=== PATIENT | female | born 1985 | race Caucasian/White ===

== ENCOUNTER 2020-11-24 10:48 | Emergency (ER) | payer OTHER ==
--- OUTSIDE RECORDS SUMMARY | 2020-11-24 10:50 | XMS REPORT | Continuity of Care Document ---
:1985 Author Organization [facility] t Address [address] [place] [address] Care Team Providers Name Role Phone Asked, Pcp Primary Care Physician Unavailable Lab, Fam Pob I Attending Clinician Unavailable Doctor Unassigned, Name Attending Clinician Unavailable DANYELLE Attending Clinician Unavailable DR KEATON Attending Clinician Unavailable DR KEATON Admitting Clinician Unavailable Problems This patient has no known problems. Allergies, Adverse Reactions, Alerts This patient has no known allergies or adverse reactions. Social History Social Habit Start Date Stop Date Quantity Comments Source History [facility] Christianity Alcohol Std Drinks Hospit al History [facility] Alcohol Binge Hospital ASSERTION [facility] Alcohol intake 2019-05-26 2019-05-26 Lifetime [facility] 00:00:00 00:00:00 non-drinker Hospital (finding) History [facility] 2019-05-26 2019-05-26 1 [facility] Alcohol Frequency 00:00:00 00:00:00 Hospita l Sex Assigned At [birth year] [facility] 00:00:00 00:00:00 Hospital Smoking Status Start Date Stop Date Source Former smoker 2019-05-26 00:00:00 2019-05-26 00:00:00 [facility] Ordered Filled Start Stop Current Ordering Indication Dosage Frequency Signature Comments Components Source Medication Medication Date Date Medication? Clinician (SIG) Name Name No known No Methodi medications [facility] Hospita l Procedures This patient has no known procedures. Plan of Care Planned Activity Planned Date Details Comments Source Future Scheduled Test COVID-19 VACCINE (1) [facility] [code = COVID-19 VACCINE (1)] Future Scheduled Test Hepatitis C screening [facility] (procedure) [code = 671432449] Future Scheduled Test Screening for [facility] malignant neoplasm of cervix (procedure) [code = 739576338] Future Scheduled Test INFLUENZA VACCINE [facility] [code = INFLUENZA VACCINE] Encounters Start End Encounter Admission Attending Care Care Encounter Source Date/Time Date/Time Type Type Clinicians Facility Department ID 2020-04-14 2020-04-14 Laboratory Lab, Ad[facility] [id number] 15:49:17 16:09:17 Only Fam Pob I [facility] [id number] [place] [id number] Professio [phone] [address] 2020-04-14 2020-04-14 Letter Doctor LUCIA [id number] 00:00:00 00:00:00 (Out) Unassigned, LENY [id number] [place] [facility] [id number] 2019-05-26 2019-05-26 Emergency DANYELLE, [facility] [id number] [place] 00:00:00 00:00:00 [place] [address] 2017-08-27 2017-08-27 Emergency E PUGH, [facility] [id number] [facility] 06:22:00 07:44:00 [facility] Results Test Description Test Time Test Comments Results Result [facility] e Comments XR ANKLE LEFT 2017-08-27 Left ankle 3 COMPLETE 3 VIEWS 07:18:25 viewsIndication: TraumaComparison: None.The patient:Findings: Transverse fracture through the base of the fifth metatarsal.Remaining skeletal structures are intact. Ankle joint is intact. Mild softtissue swelling over lateral malleolus and lateral foot.Impression: Gao fracture. Mild soft tissue swelling over lateral foot andankle. XR FOOT LEFT 2017-08-27 Right foot 3 views and COMPLETE 3 VIEWS 07:17:10 right ankle 3 viewsIndication fallLocation: L1 1Comparison: None.Findings:Minimally displaced transverse fracture through the base of the fifthmetatarsal extends to the base of the fourth metatarsal and involves theintermetatarsal joint. The cuboid-base of the fifth metatarsal is intact.Remaining skeletal structures are intact.Soft tissue swelling over the lateral aspect of the foot and ankle.Impression:Gao fracture fifth metatarsal.
[2020-11-24 11:30] LABS: Absolute Lymphocytes (CBC) 2.1 K/uL (0.7-4.9); Basophils % 0.3 % (0-1.3); Hematocrit 40.1 % (36.0-45.0); Lymphocytes % 26.7 % (15.3-44.8); MPV 8.1 fL (7.6-11.3); RBC Red Blood Cell Count 4.52 M/uL (3.86-4.86)
[2020-11-24 11:37] LABS: Protime INR 1.02
[2020-11-24 12:06] LABS: ALT/SGPT 29 U/L (12-78); AST/SGOT 9 U/L (15-37); Albumin 3.4 g/dL (3.4-5.0); Alkaline Phosphatase 86 U/L (45-117); BUN Blood Urea Nitrogen 10 mg/dL (7-18); Bicarbonate 24 mmol/L (21-32); Bilirubin Direct 0.2 mg/dL (0-0.2); Bilirubin Total 0.5 mg/dL (0.2-1.0); Glucose Level 91 mg/dL (74-106); Magnesium 2.2 mg/dL (1.8-2.4); NT PRO-BNP 56 pg/mL (<125); Potassium 4.1 mmol/L (3.5-5.1); Protein, Total 6.8 g/dL (6.4-8.2); Sodium Level 141 mmol/L (136-145); Troponin (Emerg Dept Use Only) < 0.02 ng/mL (0.0-0.045)
[2020-11-24 12:16] LABS: Urine Blood Trace-lysed (Negative); Urine Glucose Negative (Negative); Urine Protein 1+ (Negative); Urine Specific Gravity >=1.030 (1.005-1.030); Urine pH 5.5 (5.0-7.0)
--- NOTE | 2020-11-24 12:17 | RAD REPORT ---
EXAM DESCRIPTION: RAD - Chest Single View - 11/24/2020 12:10 pm CLINICAL HISTORY: CHEST PAIN COMPARISON: No comparisons FINDINGS: No evidence of edema or pneumonia. The heart size is within normal limits.No acute osseous abnormality. No significant pleural effusions or pneumothorax. IMPRESSION: No acute cardiopulmonary disease.
[2020-11-24] MEDS ORDERED: KETOROLAC 30 MG/ML INJ ONE (12:41)
[2020-11-24 12:46] LABS: Urine Specific Gravity/Preg >1.030 (1.005-1.030)
--- NOTE | 2020-11-24 16:05 | ER ---
Nurse's Notes [facility] Name: Angelica Dillard Age: 35 yrs Sex: Female : 1985 Arrival Date: 11/24/2020 Time: 10:51 Bed 15 Private MD: Diagnosis: Chest pain, unspecified Presentation: 11/24 10:52 Chief complaint: Patient states: sharp, L sided chest pain that woke patient up from sleep this morning, worse when taking a deep breath. Coronavirus screen: Client denies travel out of the [place] in the last 14 days. Ebola Screen: Patient denies exposure to infectious person. Patient denies travel to an Ebola-affected area in the 21 days before illness onset. Initial Sepsis Screen: Does the patient meet any 2 criteria? No. Patient's initial sepsis screen is negative. Does the patient have a suspected source of infection? No. Patient's initial sepsis screen is negative. Risk Assessment: Do you want to hurt yourself or someone else? Patient reports no desire to harm self or others. Onset of symptoms was November 24, 2020. 10:52 Method Of Arrival: Ambulatory ss 10:52 Acuity: MARIO 3 ss Historical: - Allergies: 10:54 No Known Allergies; ss - Home Meds: 10:54 None [Active]; ss - PMHx: 10:54 None; ss - PSHx: 10:54 section; Hernia repair; ss - Immunization history:: Adult Immunizations up to date, Client reports having NOT received the Covid vaccine. - Social history:: Smoking status: Patient denies any tobacco usage or history of. Screenin:07 Abuse screen: Denies threats or abuse. Denies injuries from another. Nutritional tr6 screening: No deficits noted. Tuberculosis screening: No symptoms or risk factors identified. Fall Risk None identified. Assessment: 11:10 General: Appears uncomfortable, obese, Behavior is calm, cooperative, appropriate for tr6 age. Pain: Complains of pain in chest Pain radiates to left arm Pain began suddenly. Neuro: No deficits noted. Cardiovascular: Reports chest pain, Rhythm is sinus rhythm. Respiratory: No deficits noted. GI: No deficits noted. : No deficits noted. EENT: No deficits noted. Derm: No deficits noted. Musculoskeletal: No deficits noted. 12:27 Reassessment: Patient states symptoms have improved. pt states that her symptoms have tr6 improved since arrival in ED without medication. Vital Signs: 10:52 BP 107 / 78; Pulse 72; Resp 16; Temp 97.9(TE); Pulse Ox 99% on R/A; Weight 113.4 kg; ss Height 5 ft. 4 in. (162.56 cm); Pain 7/10; 11:00 BP 101 / 62; Pulse 72; Resp 18; Pulse Ox 99% on R/A; tr6 12:25 BP 100 / 73; Pulse 69; Resp 18; Pulse Ox 96% on R/A; tr6 10:52 Body Mass Index 42.91 (113.40 kg, 162.56 cm) ss Vitals: 11:00 Cardiac Rhythm Assessment Regular Sinus rhythm. tr6 ED Course: 10:51 Patient arrived in ED. ss 10:52 Kathy Lee, RN is Primary Nurse. tr6 10:54 Triage completed. ss 10:54 Arm band placed on right wrist. ss 10:55 EKG done, by ED staff, reviewed by Shalom Tran MD. mt 11:07 Resting quietly. Awaiting ED provider evaluation. tr6 11:07 Patient has correct armband on for positive identification. cane pusher on. Pulse tr6 ox on. NIBP on. Door closed. Noise minimized. Visitors limited. Lights dimmed. Moved to private room. Warm blanket given. Diet: Patient is NPO. 11:07 No provider procedures requiring assistance completed. Patient maintains SpO2 tr6 saturation greater than 95% on room air. 11:16 Rosey Glez FNP-C is [facility]. kb 11:16 Shalom Tran MD is Attending Physician. kb 11:26 Inserted saline lock: 18 gauge in right upper arm, using aseptic technique. Blood tr6 collected. 12:09 XRAY Chest (1 view) In Process Unspecified. EDMS 15:21 Troponin (emerg Dept Use Only) Sent. tr6 16:19 IV discontinued. ss Administered Medications: 12:24 Drug: Ketorolac 30 mg Route: IVP; Site: right antecubital; tr6 14:04 Follow up: Response: No adverse reaction; Pain is decreased tr6 Outcome: 16:04 Discharge ordered by . kb 16:19 Discharged to home ambulatory. ss 16:19 Condition: good 16:19 Discharge instructions given to patient, Instructed on discharge instructions, follow up and referral plans. Demonstrated understanding of instructions, follow-up care. 16:20 Patient left the ED. Signatures: Dispatcher [employer] EDRosey Sorenson, POWER STATION OPERATOR-C POWER STATION OPERATOR-Mikki Duke RN RN Lisa Priest mt, Tiffany, RN RN tr6
--- NOTE | 2020-11-24 16:05 | EDPHYS ---
Physician Documentation [facility] Name: Angelica Dillard Age: 35 yrs Sex: Female : 1985 Arrival Date: 11/24/2020 Time: 10:51 Bed 15 Private MD: ED Physician Shalom Tran HPI: 11/24 16:07 This 35 yrs old Female presents to ER via Ambulatory with complaints of Chest kb Pain. 16:07 The patient or guardian reports chest pain that is located primarily in the anterior kb chest wall, bilaterally. The pain radiates to the left shoulder. Associated signs and symptoms: The patient has no apparent associated signs or symptoms. The chest pain is described as aching. Duration: The patient or guardian reports a single episode, that is still ongoing. Modifying factors: The symptoms are alleviated by nothing. the symptoms are aggravated by deep breath. Severity of pain: At its worst the pain was moderate in the emergency department the pain is unchanged. The patient has not experienced similar symptoms in the past. The patient has not recently seen a physician. Pt reports chest pain that started at 0900. States it woke her from sleep. Has never had anything like this before, no medical history, family history of hypertension only. Denies any associated symptoms. States pain is worse with deep breath. Historical: - Allergies: 10:54 No Known Allergies; ss - Home Meds: 10:54 None [Active]; ss - PMHx: 10:54 None; ss - PSHx: 10:54 section; Hernia repair; ss - Immunization history:: Adult Immunizations up to date, Client reports having NOT received the Covid vaccine. - Social history:: Smoking status: Patient denies any tobacco usage or history of. ROS: 16:09 Constitutional: Negative for fever, chills, and weight loss. kb 16:09 Cardiovascular: Positive for chest pain, Negative for edema, orthopnea, palpitations, paroxysmal nocturnal dyspnea. 16:09 All other systems are negative. Exam: 16:09 Constitutional: This is a well developed, well nourished patient who is awake, alert, kb and in no acute distress. Head/Face: Normocephalic, atraumatic. ENT: Moist Mucous membranes Cardiovascular: Regular rate and rhythm with a normal S1 and S2. No gallops, murmurs, or rubs. No pulse deficits. Respiratory: Respirations even and unlabored. No increased work of breathing, no retractions or nasal flaring. Abdomen/GI: Soft, non-tender. No distention Skin: Warm, dry with normal turgor. Normal color. MS/ Extremity: Pulses equal, no cyanosis. Neurovascular intact. Full, normal range of motion. Neuro: Awake and alert, GCS 15, oriented to person, place, time, and situation. Moves all extremities. Normal gait. Psych: Awake, alert, with orientation to person, place and time. Behavior, mood, and affect are within normal limits. Vital Signs: 10:52 BP 107 / 78; Pulse 72; Resp 16; Temp 97.9(TE); Pulse Ox 99% on R/A; Weight 113.4 kg; ss Height 5 ft. 4 in. (162.56 cm); Pain 7/10; 11:00 BP 101 / 62; Pulse 72; Resp 18; Pulse Ox 99% on R/A; tr6 12:25 BP 100 / 73; Pulse 69; Resp 18; Pulse Ox 96% on R/A; tr6 10:52 Body Mass Index 42.91 (113.40 kg, 162.56 cm) ss MDM: 11:16 Patient medically screened. kb 12:50 ED course: Pt states she is feeling much better now. . kb 16:04 Data reviewed: vital signs, nurses notes. Data interpreted: Pulse oximetry: on room air kb is 96 %. Interpretation: normal. Counseling: I had a detailed discussion with the patient and/or guardian regarding: the historical points, exam findings, and any diagnostic results supporting the discharge/admit diagnosis, lab results, radiology results, the need for outpatient follow up, a family practitioner, to return to the emergency department if symptoms worsen or persist or if there are any questions or concerns that arise at home. 16:09 ED course: Pain relieved after toradol. Pt feeling better. kb 11/24 11:16 Order name: Basic Metabolic Panel; Complete Time: 12:10 kb 11/24 11:16 Order name: CBC with Diff; Complete Time: 11:38 kb 11/24 11:16 Order name: LFT's; Complete Time: 12:10 kb 11/24 11:16 Order name: Magnesium; Complete Time: 12:10 kb 11/24 11:16 Order name: NT PRO-BNP; Complete Time: 12:10 kb 11/24 11:16 Order name: PT-INR; Complete Time: 11:38 kb 11/24 11:16 Order name: Troponin (emerg Dept Use Only); Complete Time: 12:10 kb 11/24 11:16 Order name: XRAY Chest (1 view); Complete Time: 12:31 kb 11/24 11:21 Order name: D-Dimer kb 11/24 11:21 Order name: D-Dimer; Complete Time: 11:47 EDMS 11/24 12:16 Order name: Urine Dipstick-Ancillary EDMS 11/24 12:17 Order name: Urine --Ancillary (enter results); Complete Time: 12:48 em1 11/24 14:57 Order name: Troponin (emerg Dept Use Only) kb 11/24 14:58 Order name: Troponin (Emerg Dept Use Only); Complete Time: 16:01 EDMS 11/24 11:16 Order name: EKG; Complete Time: 11:17 kb 11/24 11:16 Order name: Cardiac monitoring; Complete Time: 11:16 kb 11/24 11:16 Order name: EKG - Nurse/Tech; Complete Time: 11:16 kb 11/24 11:16 Order name: IV Saline Lock; Complete Time: 11:16 kb 11/24 11:16 Order name: Labs collected and sent; Complete Time: 11:16 kb 11/24 11:16 Order name: O2 Per Protocol; Complete Time: 11:16 kb 11/24 11:16 Order name: O2 Sat Monitoring; Complete Time: 11:16 kb 11/24 14:57 Order name: EKG; Complete Time: 14:58 kb 11/24 14:57 Order name: EKG - Nurse/Tech; Complete Time: 15:21 kb Administered Medications: 12:24 Drug: Ketorolac 30 mg Route: IVP; Site: right antecubital; tr6 14:04 Follow up: Response: No adverse reaction; Pain is decreased tr6 Disposition: 17:09 Co-signature as Attending Physician, Shalom Tran MD I agree with the assessment and kdr plan of care. Disposition Summary: 11/24/20 16:04 Discharge Ordered Location: Home kb Condition: Stable kb Diagnosis - Chest pain, unspecified kb Followup: kb - With: Emergency Department - When: As needed - Reason: Worsening of condition Followup: kb - With: Private Physician - When: 2 - 3 days - Reason: Recheck today's complaints, Continuance of care, Re-evaluation by your physician Discharge Instructions: - Discharge Summary Sheet kb - Nonspecific Chest Pain, Adult, [id number] kb Forms: - Medication Reconciliation Form kb - Thank You Letter kb - Antibiotic Education kb - Prescription Opioid Use kb Signatures: Dispatcher [employer] EDFL Rosey Glez, NGUYEN JC-Shalom Chawla MD MD [facility] Mikki Arredondo, MARYANNE RN ss Kathy Lee RN RN tr6
[2020-11-24 16:27] VITALS: TEMP 97.9
[2020-11-24 16:30] VITALS: BP 100/73; O2SAT 96
== END 2020-11-24 16:20 | disposition home or self-care (01) ==
LOC: ER 10:48
DX: R07.9 Chest pain, unspecified (principal)
CPT/HCPCS: 36415; 71045; 80048; 80076; 81003; 81025; 83735; 83880; 84484; 85025; 85379; 85610; 93005; 96374; 99285

== ENCOUNTER 2021-09-30 05:36 | Emergency (ER) | payer OTHER ==
--- OUTSIDE RECORDS SUMMARY | 2021-09-30 05:38 | XMS REPORT | Continuity of Care Document ---
:1985 Author Organization [facility] t Address [address] [place] [address] Care Team Providers Name Role Phone Asked, Pcp Primary Care Physician Unavailable Lab, Fam Pob I Attending Clinician Unavailable Leonora Bernard Attending Clinician Leonora HANSON Attending Clinician Unavailable Doctor Unassigned, Name Attending Clinician Unavailable DR KEATON Attending Clinician Unavailable DR KEATON Admitting Clinician Unavailable Problems This patient has no known problems. Allergies, Adverse Reactions, Alerts Allergy Allergy Status Severity Reaction(s) Onset Inactive Treating Comm ents Source Name Type Date Date Clinician NO KNOWN Drug Active Univers ALLERGIE Class ity of [facility] Social History Social Habit Start Date Stop Date Quantity Comments Source Sex Assigned At [facility] y of [facility] Exposure to Yes University of SARS-CoV-2 [place] [facility] (event) Branch History [facility] Alcohol Std Drinks History [facility] Binge [facility] Alcohol intake 2019-05-26 2019-05-26 [facility] 00:00:00 00:00:00 non-drinker (finding) History SDOH 2019-05-26 2019-05-26 1 [facility] Alcohol Frequency 00:00:00 00:00:00 Smoking Status Start Date Stop Date Source Unknown if ever smoked [facility] Former smoker 2019-05-26 00:00:00 2019-05-26 00:00:00 [facility] Medications Ordered Filled Start Stop Current Ordering Indication Dosage Frequency Signature Comments Components Source Medication Medication Date Date Medication? Clinician (SIG) Name Name No known No [facility] Procedures This patient has no known procedures. Plan of Care Planned Activity Planned Date Details Comments Source Future Scheduled Test Hepatitis C screening [facility] (procedure) [code = 772167861] Future Scheduled Test Screening for [facility] malignant neoplasm of cervix (procedure) [code = 140150017] Future Scheduled Test INFLUENZA VACCINE [facility] [code = INFLUENZA VACCINE] Future Scheduled Test COVID-19 VACCINE (1) [facility] [code = COVID-19 VACCINE (1)] Encounters Start End Encounter Admission Attending Care Care Encounter Source Date/Time Date/Time Type Type Clinicians Facility Department ID 2020-04-14 2020-04-14 Laboratory Lab, [facility] Fam Pob I [facility]UST [id number] [facility] 15:49:17 16:09:17 Only [facility] [id number] ity of [place] [id number] Jenaro as Professio [phone] [address] Office Building [facility] 2020-04-14 2020-04-14 Laboratory Lab, [facility] [id number] 15:49:17 16:09:17 Only Fam Pob I Health [id number] [place] [id number] Professio [phone] [place] [address] Office Building [facility] 2020-04-14 2020-04-14 Outpatient R [facility]ANG [facility] [id number] Univers 16:00:00 16:00:00 RAMONITA [facility] 2020-04-14 2020-04-14 Letter Doctor MYERS [id number] Univers 00:00:00 00:00:00 (Out) Unassigned, LENY [id number] ity of [place] [facility] [id number] Jenaro as [phone] [address] 2020-04-14 2020-04-14 Letter Doctor MYERS [id number] 00:00:00 00:00:00 (Out) Unassigned, LENY [id number] [place] [facility] [id number] [facility] 2017-08-27 2017-08-27 Emergency E KEATON [facility] [id number] [facility] 06:22:00 07:44:00 [facility] Results Test Description Test Time Test Comments Results Result [facility] tanya Comments XR ANKLE LEFT 2017-08-27 Left ankle [...]
--- NOTE | 2021-09-30 06:45 | ER ---
Nurse's Notes [facility] Name: Angelica Dillard Age: 36 yrs Sex: Female : 1985 Arrival Date: 09/30/2021 Time: 05:38 Bed 16 Private MD: Diagnosis: Nondisplaced fracture of proximal phalanx of left lesser toe(s) Presentation: 09/30 05:55 Chief complaint: Patient states: "[place] tripped.". Coronavirus tw5 screen: Vaccine status: Patient reports being unvaccinated. Ebola Screen: Patient negative for fever greater than or equal to 101.5 degrees Fahrenheit, and additional compatible Ebola Virus Disease symptoms Patient denies exposure to infectious person. Patient denies travel to an Ebola-affected area in the 21 days before illness onset. Initial Sepsis Screen: Does the patient meet any 2 criteria? No. Patient's initial sepsis screen is negative. Does the patient have a suspected source of infection? No. Patient's initial sepsis screen is negative. Initial Sepsis Screen: Does the patient meet any 2 criteria?. Risk Assessment: Do you want to hurt yourself or someone else? Patient reports no desire to harm self or others. Onset of symptoms was September 29, 2021 at 21:00. 05:55 Method Of Arrival: Wheelchair tw5 05:55 Acuity: MARIO 4 tw5 Triage Assessment: 05:57 General: Appears in no apparent distress. Behavior is calm, cooperative, appropriate tw5 for age. Pain: Complains of pain in dorsum of left foot Pain at worst was 6 out of 10 on a pain scale. Musculoskeletal: Range of motion: intact in all extremities. Injury Description: Bruise sustained to left second toe is. 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 - Social history:: Smoking status: Patient denies any tobacco usage or history of. - Family history:: not pertinent. - Hospitalizations: : No recent hospitalization is reported. Screenin:04 Abuse screen: Denies threats or abuse. Nutritional screening: No deficits noted. ll3 Tuberculosis screening: No symptoms or risk factors identified. Fall Risk No fall in past 12 months (0 pts). No secondary diagnosis (0 pts). No IV (0 pts). Ambulatory Aid- None/Bed Rest/Nurse Assist (0 pts). Gait- Impaired (20 pts.). Mental Status- Oriented to own ability (0 pts). Total Roberts Fall Scale indicates No Risk (0-24 pts). Vital Signs: 05:55 BP 130 / 81; Pulse 112; Resp 18; Temp 98.2; Pulse Ox 100% ; Weight 113.4 kg; Height 5 tw5 ft. 4 in. (162.56 cm); Pain 6/10; 05:55 Body Mass Index 42.91 (113.40 kg, 162.56 cm) tw5 ED Course: 05:38 Patient arrived in ED. 05:38 Garry Watson MD is Attending Physician. rn 05:55 Kathy Lincoln is Primary Nurse. tw 05:57 Triage completed. tw 05:57 Arm band placed on. tw5 06:08 XRAY Foot LEFT 3 View In Process Unspecified. EDMS 06:45 Adarsh Daigle MD is Referral Physician. rn 07:04 Patient has correct armband on for positive identification. Bed in low position. Call ll3 light in reach. Side rails up X 1. 07:04 No provider procedures requiring assistance completed. Patient did not have IV access ll3 during this emergency room visit. Administered Medications: No medications were administered Medication: 07:05 VIS not applicable for this client. ll3 Outcome: 06:45 Discharge ordered by . rn 07:04 Discharged to home with crutches. ll3 07:04 Condition: stable 07:04 Discharge instructions given to patient, Instructed on discharge instructions, follow up and referral plans. medication usage, Demonstrated understanding of instructions, follow-up care, medications, Prescriptions given X 1. 07:06 Patient left the ED. ll3 Signatures: Dispatcher [employer] EDTX Angella [place] Garry Watson MD MD rn Wood, Tiffany tw5 Damari Coffey RN RN ll3 Corrections: (The following items were deleted from the chart) 05:57 05:57 Allergies: Aspirin; tw tw5
--- NOTE | 2021-09-30 06:46 | EDPHYS ---
Physician Documentation [facility] Name: Angelica Dillard Age: 36 yrs Sex: Female : 1985 Arrival Date: 09/30/2021 Time: 05:38 Bed 16 Private MD: ED Physician Garry Watson HPI: 09/30 05:52 This 36 yrs old Female presents to ER via Unassigned with complaints of Foot Injury. rn 05:52 The patient presents with an injury, pain, swelling. The complaints affect the left rn foot. Onset: The symptoms/episode began/occurred last night. Modifying factors: The symptoms are alleviated by nothing, the symptoms are aggravated by weight bearing, movement. Associated signs and symptoms: Pertinent positives: swelling, Pertinent negatives: fever, warmth. Severity of symptoms: At their worst the symptoms were moderate, in the emergency department the symptoms are unchanged. The patient has experienced a previous episode. The patient has not recently seen a physician. Reports kicked a step/stone on [place] last night, hurts more today, has broken that foot before, feels broken again. Isolated pain to left 2nd digit and base of 2nd digit.. 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 - Social history:: Smoking status: Patient denies any tobacco usage or history of. - Family history:: not pertinent. - Hospitalizations: : No recent hospitalization is reported. ROS: 05:52 Constitutional: Negative for fever, chills, and weight loss, MS/Extremity: + injury to rn left foot Exam: 05:52 Constitutional: This is a well developed, well nourished patient who is awake, alert, rn and in no acute distress. Here with her own crutches from previous foot injury. MS/ Extremity: Pulses equal, no cyanosis. Neurovascular intact. + swelling and ecchymosis to left 2nd digit and base of 2nd digit. No open wounds. Vital Signs: 05:55 BP 130 / 81; Pulse 112; Resp 18; Temp 98.2; Pulse Ox 100% ; Weight 113.4 kg; Height 5 tw5 ft. 4 in. (162.56 cm); Pain 6/10; 05:55 Body Mass Index 42.91 (113.40 kg, 162.56 cm) tw5 MDM: 05:38 Patient medically screened. rn 06:44 Differential diagnosis: fracture. Data reviewed: vital signs, nurses notes, radiologic rn studies, plain films, and as a result, I will discharge patient. Counseling: I had a detailed discussion with the patient and/or guardian regarding: the historical points, exam findings, and any diagnostic results supporting the discharge/admit diagnosis, radiology results, the need for outpatient follow up, to return to the emergency department if symptoms worsen or persist or if there are any questions or concerns that arise at home. Special discussion: I discussed with the patient/guardian in detail that at this point there is no indication for admission to the hospital. It is understood, however, that if the symptoms persist or worsen the patient needs to return immediately for re-evaluation. Based on the history and exam findings, there is no indication for further emergent testing or inpatient evaluation. I discussed with the patient/guardian the need to see the orthopedic surgeon for further evaluation of the symptoms. 09/30 05:45 Order name: XRAY Foot LEFT 3 View ll3 09/30 06:44 Order name: Splint: gail tape 1st/2nd toes; Complete Time: 07:04 rn Administered Medications: No medications were administered Disposition Summary: 09/30/21 06:45 Discharge Ordered Location: Home rn Problem: new rn Symptoms: have improved rn Condition: Stable rn Diagnosis - Nondisplaced fracture of proximal phalanx of left lesser toe(s) rn Followup: rn - With: Adarsh Daigle MD - When: As needed - Reason: Recheck today's complaints, Re-evaluation by your physician Discharge Instructions: - Discharge Summary Sheet rn - Toe Fracture rn Forms: - Medication Reconciliation Form rn - Thank You Letter rn - Antibiotic 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
[2021-09-30 07:48] VITALS: BP 130/81; TEMP 98.2; O2SAT 100
--- NOTE | 2021-09-30 08:13 | RAD REPORT ---
EXAM DESCRIPTION: RAD - Foot Left 3 View - 09/30/2021 6:07 am CLINICAL HISTORY: PAIN COMPARISON: No comparisons FINDINGS: Nondisplaced fracture is noted involving the proximal phalanx of the second toe. Mild alonso cent soft tissue swelling.
== END 2021-09-30 07:06 | disposition home or self-care (01) ==
LOC: ER 05:36
DX: S92.515A Nondisplaced fracture of proximal phalanx of left lesser toe(s), initial encounter for closed fracture (principal); W01.0XXA Fall on same level from slipping, tripping and stumbling without subsequent striking against object, initial encounter; Y93.89 Activity, other specified; Y92.832 Beach as the place of occurrence of the external cause
CPT/HCPCS: 99283

== ENCOUNTER 2021-10-09 08:13 | Emergency (ER) | payer OTHER ==
--- OUTSIDE RECORDS SUMMARY | 2021-10-09 08:16 | XMS REPORT | Continuity of Care Document ---
:1985 Author Organization [facility] t Address [address] [place] [address] Care Team Providers Name Role Phone Asked, [...] Drug Active Univers ALLERGIE Class ity of [facility] Social History Social Habit Start Date Stop Date Quantity Comments Source History [facility] Std Drinks History [facility] Binge [facility] Exposure to Yes University of SARS-CoV-2 [facility] (event) [place] Alcohol intake 2019-05-26 2019-05-26 [facility] 00:00:00 00:00:00 non-drinker (finding) History [facility] 2019-05-26 2019-05-26 1 [facility] Alcohol Frequency 00:00:00 00:00:00 Smoking Status Start Date Stop Date Source Unknown if ever smoked [facility] Former smoker 2019-05-26 00:00:00 2019-05-26 00:00:00 [facility] Medications Ordered Filled Start Stop Current Ordering Indication Dosage Frequency Signature Comments Components Source Medication Medication Date Date Medication? Clinician (SIG) Name Name No known No Methodi medications [facility] l Procedures This patient has no known procedures. Plan of Care Planned Activity Planned Date Details Comments Source Future Scheduled Test Hepatitis C screening [facility] (procedure) [code = 471139303] Future Scheduled Test Screening for [facility] malignant neoplasm of cervix (procedure) [code = 931703191] Future Scheduled Test INFLUENZA VACCINE [facility] [code = INFLUENZA VACCINE] Future Scheduled Test COVID-19 VACCINE (1) [facility] [code = COVID-19 VACCINE (1)] Encounters Start End Encounter Admission Attending Care Care Encounter Source Date/Time Date/Time Type Type Clinicians Facility Department ID 2020-04-14 2020-04-14 Laboratory Lab, [facility] Fam Pob I [facility] 1.2. [id number] [id number] [facility] 15:49:17 16:09:17 Only [facility] [id number] ity of [place] [id number] Jen[place] as Professio [phone] Pa dical [address] Office Building [facility] 2020-04-14 2020-04-14 Laboratory Lab, [facility] [id number] 15:49:17 16:09:17 Only Fam Pob I Health [id number] [place] [id number] Professio [phone] [place] [address] Office [facility] 2020-04-14 2020-04-14 Outpatient R QUANG [facility] [id number] [id number] Univers 16:00:00 16:00:00 RAMONITA [facility] 2020-04-14 2020-04-14 Letter Doctor MYERS [id number] [facility] 00:00:00 00:00:00 (Out) Unassigned, LENY [id number] ity of [facility] [id number] Jenaro as [phone] [address] 2020-04-14 2020-04-14 Letter Doctor MYERS [id number] 00:00:00 00:00:00 (Out) Unassigned, LENY [id number] [facility] [phone] [facility] 2017-08-27 2017-08-27 Emergency E PUGH, [facility] ECC [id number] [address] 06:22:00 07:44:00 [facility] Results Test Description Test Time Test Comments Results Result [facility] tanya Comments XR ANKLE LEFT 2017-08-27 [...]
[2021-10-09] MEDS ORDERED: HYDROCODONE/CHLORPHEN 5 ML/OSYR ONE (10:56)
[2021-10-09] MEDS ORDERED: ONDANSETRON 4 MG (ODT) TAB ONE (10:57)
[2021-10-09] MEDS ORDERED: IBUPROFEN 400 MG TAB ONE (10:57)
[2021-10-09] MEDS ORDERED: NA CHLORIDE 0.9% 1,000 ML ONE (10:57)
--- NOTE | 2021-10-09 13:51 | EDPHYS ---
Physician Documentation [facility] Name: Angelica Dillard Age: 36 yrs Sex: Female : 1985 Arrival Date: 10/09/2021 Time: 08:15 Bed 20 Private MD: ED Physician Garry Watson HPI: 10/09 09:37 This 36 yrs old Female presents to ER via Unassigned with complaints of Flu Symptoms. pm1 09:37 The patient or guardian reports cough, flu symptoms. Onset: The symptoms/episode pm1 began/occurred yesterday. Severity of symptoms: in the emergency department the symptoms are actually worse. Modifying factors: the symptoms are aggravated by coughing causes her to vomit. Associated signs and symptoms: Pertinent positives: fever, Chills, Pertinent negatives: sore throat, shortness of breath. The patient has not experienced similar symptoms in the past. The patient has not recently seen a physician. 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 - Social history:: Smoking status: Patient denies any tobacco usage or history of. ROS: 09:36 Constitutional: Negative for fever, chills, and weight loss, Cardiovascular: Negative pm1 for chest pain, palpitations, and edema, Respiratory: Negative for shortness of breath, cough, wheezing, and pleuritic chest pain. 09:36 Back: Negative for injury and pain, MS/Extremity: Negative for injury and deformity, Skin: Negative for injury, rash, and discoloration. 09:36 Abdomen/GI: Positive for nausea, Negative for abdominal pain, vomiting, diarrhea, constipation. 09:36 All other systems are negative. Exam: 09:36 Constitutional: This is a well developed, well nourished patient who is awake, alert, pm1 and in no acute distress. Head/Face: Normocephalic, atraumatic. 09:36 Back: No spinal tenderness. No costovertebral tenderness. Full range of motion. Skin: Warm, dry with normal turgor. Normal color with no rashes, no lesions, and no evidence of cellulitis. MS/ Extremity: Pulses equal, no cyanosis. Neurovascular intact. Full, normal range of motion. 09:36 Cardiovascular: Exam negative for acute changes, Rate: normal, Rhythm: regular, Pulses: no pulse deficits are appreciated, Heart sounds: normal. 09:36 Respiratory: Exam negative for acute changes, respiratory distress, shortness of breath, Breath sounds: are clear throughout. 09:36 Abdomen/GI: Inspection: abdomen appears normal, Palpation: abdomen is soft and non-tender, in all quadrants. 09:36 Neuro: Exam negative for acute changes, Orientation: is normal, Mentation: is normal, Motor: is normal, moves all fours. Vital Signs: 09:40 BP 126 / 86; Pulse 115; Resp 18; Temp 100.6; Pulse Ox 100% on R/A; iw 11:00 BP 105 / 81; Pulse 102; Resp 16 S; Pulse Ox 94% on R/A; jg9 12:30 BP 98 / 60; Pulse 92; Resp 17 S; Pulse Ox 93% ; jg9 13:45 BP 106 / 68; Pulse 87; Resp 17 S; Pulse Ox 95% on R/A; jg9 MDM: 09:39 Patient medically screened. pm1 13:44 Data reviewed: vital signs. pm1 13:49 Counseling: I had a detailed discussion with the patient and/or guardian regarding: the pm1 historical points, exam findings, and any diagnostic results supporting the discharge/admit diagnosis, lab results, the need for outpatient follow up, to return to the emergency department if symptoms worsen or persist or if there are any questions or concerns that arise at home. 10/09 09:36 Order name: COVID-19 SARS RT PCR (Document "Date of Onset" if Symptomatic); Complete pm1 Time: 13:44 10/09 09:36 Order name: Flu; Complete Time: 10:36 pm1 10/09 09:36 Order name: IV Saline Lock; Complete Time: 11:03 pm1 Administered Medications: 11:03 Drug: Zofran (Ondansetron) 4 mg Route: PO; jg9 12:47 Follow up: Response: Nausea is decreased jg9 11:03 Drug: Ibuprofen 800 mg Route: PO; jg9 12:45 Follow up: Response: No adverse reaction 11:03 Drug: NS 0.9% 1000 ml Route: IV; Rate: 1000 ml; Site: right forearm; 12:00 Follow up: IV Status: Completed infusion; IV Intake: 1000ml 11:03 Drug: Tussionex Pennkinetic ER (chlorpheniramine-hydrocodone) Suspension 5 ml Route: PO;g 12:00 Follow up: Response: No adverse reaction Disposition: 16:02 Co-signature as Attending Physician, Garry Watson MD. rn Disposition Summary: 10/09/21 13:50 Discharge Ordered Location: Home pm1 Problem: new pm1 Symptoms: have improved pm1 Condition: Stable pm1 Diagnosis - Coronavirus infection, unspecified pm1 Followup: pm1 - With: Emergency Department - When: As needed - Reason: Worsening of condition Followup: pm1 - With: Private Physician - When: 2 - 3 days - Reason: Recheck today's complaints, Continuance of care, Re-evaluation by your physician Discharge Instructions: - Discharge Summary Sheet pm1 - COVID-19 pm1 - COVID-19 Frequently Asked Questions pm1 - 10 Things You Can Do to Manage Your COVID-19 Symptoms at Home - [facility] pm1 - COVID-19: Quarantine vs. Isolation - [facility] pm1 Forms: - Medication Reconciliation Form pm1 - Thank You Letter pm1 - Antibiotic Education pm1 - Prescription Opioid Use pm1 - Work release form jg9 Prescriptions: - Zofran 4 mg Oral Tablet - take 1 tablet by ORAL route every 8 hours As needed; 20 tablet; Refills: 0, pm1 Product Selection Permitted - Guaifenesin AC 10-100 mg/5 mL Oral Liquid - take 10 milliliters by ORAL route every 4 hours As needed; 240 milliliter; pm1 Refills: 0, Product Selection Permitted Signatures: Dispatcher Med[employer] EDGarry Rey MD MD rn Marinas, Patrick, NP IMCU SPECIALIST pm1 Tiffanie Braswell RN RN jg9
--- NOTE | 2021-10-09 13:51 | ER ---
Nurse's Notes [facility] Name: Angelica Dillard Age: 36 yrs Sex: Female : 1985 Arrival Date: 10/09/2021 Time: 08:15 Bed 20 Private MD: Diagnosis: Coronavirus infection, unspecified Presentation: 10/09 09:37 Chief complaint: Patient states: fever, body aches chills, vomiting since yesterday . iw was exposed to COVID at work. Coronavirus screen: Client presents with at least one sign or symptom that may indicate coronavirus-19. Ebola Screen: Patient negative for fever greater than or equal to 101.5 degrees Fahrenheit, and additional compatible Ebola Virus Disease symptoms Patient denies exposure to infectious person. Patient denies travel to an Ebola-affected area in the 21 days before illness onset. No symptoms or risks identified at this time. 09:37 Method Of Arrival: Ambulatory iw 09:37 Acuity: MARIO 3 iw 09:40 Onset of symptoms is unknown. jg9 11:02 Initial Sepsis Screen: Does the patient meet any 2 criteria? No. Patient's initial jg9 sepsis screen is negative. Does the patient have a suspected source of infection? No. Patient's initial sepsis screen is negative. Risk Assessment: Do you want to hurt yourself or someone else? Patient reports no desire to harm self or others. Triage Assessment: 11:01 General: Appears uncomfortable, Behavior is calm. Pain: Complains of pain in abdomen. 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 - Social history:: Smoking status: Patient denies any tobacco usage or history of. Screenin:01 Abuse screen: Denies threats or abuse. Denies injuries from another. Nutritional jg9 screening: No deficits noted. Tuberculosis screening: No symptoms or risk factors identified. Fall Risk None identified. Assessment: 10:59 Reassessment: No changes from previously documented assessment. Patient and/or family jg9 updated on plan of care and expected duration. Pain level reassessed. Patient is alert, oriented x 3, equal unlabored respirations, skin warm/dry/pink. 11:02 Pain: Complains of pain in abdomen. jg9 13:09 Reassessment: Patient and/or family updated on plan of care and expected duration. Pain jg9 level reassessed. Patient is alert, oriented x 3, equal unlabored respirations, skin warm/dry/pink. Patient states feeling better. Patient states symptoms have improved. Vital Signs: 09:40 BP 126 / 86; Pulse 115; Resp 18; Temp 100.6; Pulse Ox 100% on R/A; iw 11:00 BP 105 / 81; Pulse 102; Resp 16 S; Pulse Ox 94% on R/A; jg9 12:30 BP 98 / 60; Pulse 92; Resp 17 S; Pulse Ox 93% ; jg9 13:45 BP 106 / 68; Pulse 87; Resp 17 S; Pulse Ox 95% on R/A; jg9 ED Course: 08:15 Patient arrived in ED. rg4 09:34 Gopi Simpson NP is PHCP. pm1 09:34 Garry Watson MD is Attending Physician. pm1 09:37 Triage completed. iw 09:40 Arm band placed on. iw 10:18 Tiffanie Braswell, RN is Primary Nurse. jg9 11:01 Inserted saline lock: 20 gauge in right forearm, using aseptic technique. jg9 11:02 Patient has correct armband on for positive identification. Bed in low position. Call jg9 light in reach. Side rails up X 1. 11:12 No apparent distress. Resting quietly. jg9 14:06 No provider procedures requiring assistance completed. jg9 14:07 IV discontinued. jg9 Administered Medications: 11:03 Drug: Zofran (Ondansetron) 4 mg Route: PO; jg9 12:47 Follow up: Response: Nausea is decreased jg9 11:03 Drug: Ibuprofen 800 mg Route: PO; jg9 12:45 Follow up: Response: No adverse reaction jg9 11:03 Drug: NS 0.9% 1000 ml Route: IV; Rate: 1000 ml; Site: right forearm; jg9 12:00 Follow up: IV Status: Completed infusion; IV Intake: 1000ml jg9 11:03 Drug: Tussionex Pennkinetic ER (chlorpheniramine-hydrocodone) Suspension 5 ml Route: PO;jg9 12:00 Follow up: Response: No adverse reaction jg9 Medication: 11:02 VIS not applicable for this client. jg9 Intake: 12:00 IV: 1000ml; Total: 1000ml. jg9 Outcome: 13:50 Discharge ordered by . pm1 14:06 Discharged to home ambulatory. jg9 14:06 Condition: stable 14:06 Discharge instructions given to patient, Instructed on discharge instructions, follow up and referral plans. Demonstrated understanding of instructions, follow-up care, Prescriptions given X 2. 14:07 Patient left the ED. jg9 Signatures: Marlena Mccray, RN Gopi Parker NP SHAKE MAKER pm1 Brooke Vincent rg4 Tiffanie Braswell RN RN jg9
[2021-10-09 15:02] VITALS: BP 106/68; O2SAT 95
[2021-10-09 15:09] VITALS: TEMP 100.6
== END 2021-10-09 14:07 | disposition home or self-care (01) ==
LOC: ER 08:13
DX: U07.1 COVID-19 (principal)
CPT/HCPCS: 87804 ×2; U0003; Q0162; J7030; 96360; 99283

== ENCOUNTER 2022-10-03 22:23 | Emergency (ER) | payer BC, OTHER ==
--- OUTSIDE RECORDS SUMMARY | 2022-10-03 22:58 | XMS REPORT | Continuity of Care Document ---
:1985 Author Organization [facility] t Address [address] [place] [id number] Care Team Providers Name Role Phone Asked, No Pcp Primary Care Physician Unavailable Lab, Adc Fam Pob I Attending Clinician Unavailable Ramonita Bernard Attending Clinician RAMONITA HANSON Attending Clinician Unavailable Doctor Unassigned, [place] Attending Clinician Unavailable DR JEFF PUGH Attending Clinician Unavailable DR JEFF PUGH Admitting Clinician Unavailable Problems This patient has no known problems. Allergies, Adverse Reactions, Alerts Allergy Allergy Status Severity Reaction(s) Onset Inactive Treating Comm ents Source Name Type Date Date Clinician NO KNOWN Drug Active Univers ALLERGIE Class ity of S [facility] Social History Social Habit Start Date Stop Date Quantity Comments Source History SDOH [facility] Std Drinks Hospit al History [facility] Exposure to Yes [facility] SARS-CoV-2 (event) [facility] orientation [facility] History of tobacco Current smoker [facility]ION [facility] History SDOH 2019-05-26 2019-05-26 1 [facility] Alcohol Frequency 00:00:00 00:00:00 Hospita l Alcohol intake 2019-05-26 2019-05-26 Lifetime [facility] 00:00:00 00:00:00 non-drinker Hospital (finding) History of Social 2019-05-26 2019-05-[address] function 00:00:00 00:00:00 Hospital Sex Assigned At [birth year] [facility] 00:00[facility]00 00:00:00 Hospital Smoking Status Start Date Stop Date Source Unknown if ever smoked [facility] Former smoker 2019-05-26 00:00:00 2019-05-26 [facility]:00:00 [facility] Medications Ordered Filled Start Stop Current Ordering Indication Dosage Frequency Signature Comments Components Source Medication Medication Date Date Medication? Clinician (SIG) Name Name No known No [facility] Procedures This patient has no known procedures. Plan of Care Planned Activity Planned Date Details Comments Source Future Scheduled 2022-10-03 COVID-[address] [facility] Test 05:10:39 (#1) [code = COVID-19 VACCINE (#1)] Future Scheduled 2022-10-03 [facility] for [facility] Test 05:10:39 malignant neoplasm of cervix (procedure) [code = 711971985] Future Scheduled 2022-10-03 INFLUENZA VACCINE [facility] Test 05:10:39 [code = INFLUENZA VACCINE] Future Scheduled Hepatitis C [facility] screening (procedure) [code = 391577715] Future Scheduled [facility] Test malignant neoplasm of cervix (procedure) [code = 477969720] Future Scheduled INFLUENZA VACCINE [facility] Test [code = INFLUENZA VACCINE] Future Scheduled COVID-[address] [facility] Test (1) [code = COVID-19 VACCINE (1)] Encounters Start End Encounter Admission Attending Care Care Encounter Source Date/Time Date/Time Type Type Clinicians Facility Department ID 2020-04-14 2020-04-14 Laboratory Lab, [facility] 1..840.114 [id number] 15:49:17 16:09:17 Only [facility]am [facility] [id number] [place] [id number] Professio [phone] nal [address] 2020-04-14 2020-04-14 Laboratory Lab, [facility] Fam Pob I [facility] 1.2. 840.114 [id number] [facility] 15:49:17 16:09:17 Only [facility]onita [facility] [id number] ity of [place] [id number] Jenaro as Professio [phone] La dical nal [address] 2020-04-14 2020-04-14 Outpatient R QUANG [facility] [id number] Univers 16:00:00 16:00:00 RAMONITA iten of [facility] 2020-04-14 2020-04-14 Letter Doctor LUCIA [id number] 00:00:00 00:00:00 (Out) Unassigned, LENY [id number] [facility] [phone] 044 2020-04-14 2020-04-14 Letter Doctor LUCIA [id number] Univers 00:00:00 00:00:00 (Out) Unassigned, LENY [id number] ity of [facility] [id number] Jenaro as [phone] [place] [address] Branch 2017-08-27 2017-08-27 Emergency E PUGH, [facility] [id number] [address] 06:22:00 07:44:00 [facility] Results Test Description Test Time Test Comments Results Result [facility] e Comments XR ANKLE LEFT 2017-08-27 [...]
--- NOTE | 2022-10-04 00:19 | ER ---
Nurse's Notes [facility] Name: Angelica Dillard Age: 37 yrs Sex: Female : 1985 Arrival Date: 10/03/2022 Time: 22:23 Bed 12 Private MD: Diagnosis: Acute vaginitis Presentation: 10/03 22:40 Chief complaint: Patient states: I have been having a lot of vaginal itching for the kd3 past two weeks and now i am burning in the external genitalia. When i look with a mirror, everything looks very inflamed. I have not noticed any foul odor or discharge. Coronavirus screen: Vaccine status: Patient reports being unvaccinated. Ebola Screen: No symptoms or risks identified at this time. Initial Sepsis Screen: Does the patient meet any 2 criteria? No. Patient's initial sepsis screen is negative. Does the patient have a suspected source of infection? No. Patient's initial sepsis screen is negative. Risk Assessment: Do you want to hurt yourself or someone else? Patient reports no desire to harm self or others. Onset of symptoms was October 03, 2022. 22:40 Method Of Arrival: Ambulatory kd3 22:40 Acuity: MARIO 4 kd3 Triage Assessment: 22:43 General: Appears uncomfortable, Behavior is calm, cooperative. Pain: Complains of pain kd3 in pelvis. Historical: - Allergies: 22:43 No Known Allergies; kd3 - PSHx: 22:43 section; hernia repair; kd3 - Immunization history:: Adult Immunizations up to date. - Social history:: Smoking status: Patient reports the use of cigarette tobacco products. Screenin:03 [facility] ED Fall Risk Assessment (Adult) History of falling in the last 3 months, lg3 including since admission No falls in past 3 months (0 pts). Abuse screen: Denies threats or abuse. Denies injuries from another. Nutritional screening: No deficits noted. Tuberculosis screening: No symptoms or risk factors identified. Assessment: 23:03 General: Appears in no apparent distress. comfortable, Behavior is calm, cooperative. lg3 Pain: Complains of pain in pelvis. Neuro: No deficits noted. Cardoso Agitation-Sedation Scale (RASS): 0 - Alert and Calm Level of Consciousness is awake, alert, obeys commands, Oriented to person, place, time, situation. Cardiovascular: No deficits noted. Denies chest pain, shortness of breath, Capillary refill < 3 seconds Clubbing of nail beds is absent JVD is absent Patient's skin is warm and dry. Respiratory: No deficits noted. Airway is patent Respiratory effort is even, unlabored, Respiratory pattern is regular, symmetrical. GI: No deficits noted. No signs and/or symptoms were reported involving the gastrointestinal system. Abdomen is round non-distended. : Reports pain vaginal itching. EENT: No deficits noted. No signs and/or symptoms were reported regarding the EENT system. Derm: No deficits noted. No signs and/or symptoms reported regarding the dermatologic system. Skin is intact, is healthy with good turgor, Skin is dry, Skin is normal, Skin temperature is warm. Musculoskeletal: No deficits noted. No signs and/or symptoms reported regarding the musculoskeletal system. Circulation, motion, and sensation intact. Range of motion: intact in all extremities. Vital Signs: 22:40 BP 126 / 89; Pulse 99; Resp 16; Temp 98.7(O); Pulse Ox 96% on R/A; Weight 113.4 kg; kd3 Height 5 ft. 4 in. ; 22:40 Body Mass Index 42.91 (113.40 kg, 162.56 cm) kd3 ED Course: 22:25 Patient arrived in ED. ja2 22:28 Aiden Traylor PA is PHCP. [facility] 22:28 Bronson Bliss MD is Attending Physician. [facility] 22:43 Triage completed. kd3 22:43 Arm band placed on right wrist. kd3 23:03 Adri Prasad, RN is Primary Nurse. lg3 23:03 Patient has correct armband on for positive identification. Placed in gown. Bed in low lg3 position. Call light in reach. Side rails up X 1. Client placed on continuous cardiac and pulse oximetry monitoring. NIBP monitoring applied. Door closed. Noise minimized. Warm blanket given. 23:32 Wet Prep Sent. lg3 06/22 00:19 Olivia Mrianda MD is Referral Physician. [facility] 00:27 Assist provider with pelvic exam: Set up pelvic tray. Performed by Aiden TSAI as6 Specimens sent to lab. Patient tolerated well. Patient did not have IV access during this emergency room visit. Administered Medications: 00:20 Drug: Fluconazole PO 150 mg Route: PO; as6 00: Follow up: Response: No adverse reaction as6 Medication: 00:27 VIS not applicable for this client. as6 Outcome: 00:19 Discharge ordered by MD. sharpe 00: Discharged to home ambulatory. as6 00: Condition: stable 00:27 Discharge instructions given to patient, Instructed on discharge instructions, follow up and referral plans. medication usage, Demonstrated understanding of instructions, follow-up care, medications, Prescriptions given X 1. 00:27 Patient left the ED. as6 Signatures: Aiden Traylor PA PA jmm Gibson, Lacie, RN RN lg3 Queta Sarah Ashby RN RN as6 Sia Montano RN RN kd3
--- NOTE | 2022-10-04 00:20 | EDPHYS ---
Physician Documentation [facility] Name: Angelica Dillard Age: 37 yrs Sex: Female : 1985 Arrival Date: 10/03/2022 Time: 22:23 Bed 12 Private MD: ED Physician Bronson Bliss HPI: 10/04 00:16 This 37 yrs old Female presents to ER via Ambulatory with complaints of Vaginal Pain, jmm Vaginal Itching. 00:16 Onset: The symptoms/episode began/occurred gradually. Modifying factors: The symptoms jmm are alleviated by nothing, the symptoms are aggravated by urinating. Associated signs and symptoms: Pertinent negatives: fever. This is a 37 year old female with no chronic medical conditions that presents to the ED with complaints of vaginal itching, discomfort beginning approx 2 week ago. Denies abnormal discharge. . Historical: - Allergies: 10/03 22:43 No Known Allergies; kd3 - PSHx: 22:43 section; hernia repair; kd3 - Immunization history:: Adult Immunizations up to date. - Social history:: Smoking status: Patient reports the use of cigarette tobacco products. ROS: 10/04 00:16 Positive for vaginal itching. jmm Constitutional: Negative for fever, chills, and weight loss, Cardiovascular: Negative for chest pain, palpitations, and edema, Respiratory: Negative for shortness of breath, cough, wheezing, and pleuritic chest pain, Abdomen/GI: Negative for abdominal pain, nausea, vomiting, diarrhea, and constipation. All other systems are negative. Exam: 00:16 Constitutional: This is a well developed, well nourished patient who is awake, alert, jmm and in no acute distress. Head/Face: atraumatic. Eyes: EOMI, no conjunctival erythema appreciated ENT: Moist Mucus Membranes Neck: Trachea midline, Supple Chest/axilla: Normal chest wall appearance and motion. Cardiovascular: Regular rate and rhythm. No edema appreciated Respiratory: Normal respirations, no respiratory distress appreciated Abdomen/GI: Non distended Back: Normal ROM 00:16 Skin: erythema noted to the labia majora . 00:16 Neuro: Orientation: is normal, Mentation: is normal, Memory: is normal. 00:16 Psych: Behavior/mood is pleasant, cooperative. Vital Signs: 10/03 22:40 BP 126 / 89; Pulse 99; Resp 16; Temp 98.7(O); Pulse Ox 96% on R/A; Weight 113.4 kg; kd3 Height 5 ft. 4 in. ; 22:40 Body Mass Index 42.91 (113.40 kg, 162.56 cm) kd3 MDM: 22:52 Patient medically screened. [facility] 10/04 00:18 Differential diagnosis: vaginosis. Data reviewed: vital signs, nurses notes, lab test [facility] result(s). Counseling: I had a detailed discussion with the patient and/or guardian regarding: the historical points, exam findings, and any diagnostic results supporting the discharge/admit diagnosis, lab results, the need for outpatient follow up, to return to the emergency department if symptoms worsen or persist or if there are any questions or concerns that arise at home. 10/03 22:52 Order name: Wet Prep; Complete Time: 00:02 [facility] 10/03 23:49 Order name: Glucose, Ancillary Testing; Complete Time: 23:50 [facility] 10/03 22:52 Order name: Pelvic Exam Setup; Complete Time: 23:17 [facility] 10/03 23:31 Order name: Fingerstick Glucose; Complete Time: 23:37 [facility] Administered Medications: 00:20 Drug: Fluconazole PO 150 mg Route: PO; as6 00:26 Follow up: Response: No adverse reaction as6 Disposition Summary: 10/04/22 00:19 Discharge Ordered Location: Home [facility] Condition: Stable [facility] Diagnosis - Acute vaginitis [facility] Followup: [facility] - With: Olivia Miranda MD - When: 2 - 3 days - Reason: Recheck today's complaints, Continuance of care, Re-evaluation by your physician Discharge Instructions: - Discharge Summary Sheet [facility] - Vaginitis [facility] Forms: - Medication Reconciliation Form [facility] - Thank You Letter [facility] - Antibiotic Education [facility] - Prescription Opioid Use [facility] Prescriptions: - nystatin 100,000 unit/gram Topical ointment - apply 1 application by TOPICAL route 2 times per day for 14 days; 1 unit; [facility] Refills: 0, Product Selection Permitted Addendum: 10/05/2022 05:19 Co-signature as Attending Physician, Bronson Bliss MD I agree with the assessment s p4 and plan of care. I reviewed the patient's care provided by the Advanced Practice Provider and agree with the diagnosis and treatment plan. Signatures: Dispatcher [employer] Aiden Watt PA PA jmm Slawson, Ashby, RN RN as6 Sia Montano RN RN kd3 Bronson Bliss MD MD sp4
[2022-10-04] MEDS ORDERED: FLUCONAZOLE 100 MG TAB ONE (00:27)
[2022-10-04 01:13] VITALS: BP 126/89; TEMP 98.7; O2SAT 96
== END 2022-10-04 00:27 | disposition home or self-care (01) ==
LOC: ER 22:23
DX: N76.0 Acute vaginitis (principal); Z72.0 Tobacco use
CPT/HCPCS: 82947; 87210; 99284

== ENCOUNTER 2024-01-30 09:58 | Emergency (ER) | payer BC ==
[2024-01-30 10:49] LABS: Absolute Eosinophils 0.1 K/uL (0-0.5); Absolute Lymphocytes (CBC) 1.4 K/uL (0.7-4.9); Absolute Monocytes 0.4 K/uL (0.1-1.3); Absolute Neutrophil 6.3 K/uL (1.8-8.0); Basophils % 0.3 % (0-1.3); Eosinophils % 1.7 % (0-4.4); Hematocrit 42.2 % (36.0-45.0); Hemoglobin 14.2 g/dL (12.0-15.0); Lymphocytes % 16.6 % (15.3-44.8); MCHC 33.6 g/dL (32.0-36.0); MCV 92.2 fL (80-100); MPV 9.2 fL (7.6-11.3); Monocytes % 4.6 % (3.3-12.3); Neutrophils % 76.8 % (41.7-73.7); Platelets 217 thou/uL (152-406); RBC Red Blood Cell Count 4.58 M/uL (3.86-4.86); Red Cell Distribution Width 14.2 % (12.1-15.2)
[2024-01-30 11:13] LABS: Albumin 3.4 g/dL (3.4-5.0); Albumin/Globulin Ratio 0.9 (1.1-1.8); Anion Gap 6.9 mEq/L (5.0-15.0); Bilirubin Total 0.4 mg/dL (0.2-1.0); Globulin 3.8 g/dL (2.3-3.5); Potassium 3.9 mEq/L (3.5-5.1); Protein, Total 7.2 g/dL (6.4-8.2)
--- NOTE | 2024-01-30 12:08 | RAD REPORT ---
EXAMINATION: Transvaginal Study Probe CLINICAL INDICATION: Female 38 years old.[facility] MAIN PELVIC PAIN TECHNIQUE: Real-time ultrasonography of the pelvis was performed transvaginally. Color and spectral D oppler evaluation of the ovaries was performed. COMPARISON: No prior exam. FINDINGS: UTERUS AND CERVIX: The uterus measures 7.4 cm in length. IUD in place. The uterus is normal. No tony s seen The endometrium is normal, 0.6 cm in thickness. RIGHT OVARY: Normal The right ovary measures 4.7 x 3.3 x 5.4 cm. Central lobulated anechoic cyst with some peripheral septations, measuring 3.5 cm in greatest dimension. Normal color and spectral Doppler evaluation of the right ovary.. LEFT OVARY: Normal The left ovary measures 2.6 x 3.5 x 3.0 cm. Peripheral 2.8 cm dominant anechoic cy st or follicle. Normal color and spectral Doppler evaluation of the left ovary.. FREE FLUID: Mild free pelvic fluid extending into the cul-de-sac. IMPRESSION: IUD in satisfactory position. Bilateral ovarian cysts as above.
[2024-01-30 12:15] LABS: Specific Gravity 1.014 (1.005-1.030); Sqamous Epithelial <5 /HPF (None Seen); Urine Bacteria <20 /HPF (<20); Urine Bilirubin NEGATIVE (Negative); Urine Blood Negative (Negative); Urine Clarity Turbid (Clear); Urine Color Light-Yellow (Yellow); Urine Culture Reflex Order NOT NEEDED; Urine Glucose NEGATIVE (Negative); Urine Ketones TRACE (Negative); Urine Micro Reflex YN NO BILL MICROSCOPIC; Urine Nitrite NEGATIVE (Negative); Urine Protein NEGATIVE (Negative); Urine RBC <5 /HPF (None Seen); Urine Urobilinogen Normal (Normal); Urine WBC <5 /HPF (<5)
[2024-01-30 12:16] LABS: Specific Gravity 1.014 (1.005-1.030)
--- NOTE | 2024-01-30 12:24 | EDPHYS ---
Physician Documentation [facility] Name: Angelica Dillard Age: 38 yrs Sex: Female : 1985 Arrival Date: 01/30/2024 Time: 09:58 Bed 10 Private MD: ED Physician Tyrone Emmanuel HPI: 01/29 10:33 This 38 yrs old Female presents to ER via EMS with complaints of Abdominal Pain, Pelvic rt Pain. 10:33 Patient with previous history of ovarian cyst with rupture presents to the ED with a rt lower pelvic pain starting about an hour prior to arrival. Pain was initially intense, started easing up, EMS was called, patient received fentanyl, pain is almost completely gone at this time. Reports nausea associated with the pain, none currently. Denies dysuria, urinary symptoms, vaginal discharge. Symptoms are moderate in severity, no other aggravating alleviating factors.. Historical: - Allergies: 10:05 No Known Allergies; ll1 - PMHx: 10:05 PCOS (hernia repair); ovarian cysts (hernia repair); ll1 - PSHx: 10:05 section; hernia repair; ll1 - Immunization history:: Adult Immunizations up to date. - Social history:: Smoking status: Patient denies any tobacco usage or history of. - Family history:: not pertinent. ROS: 10:33 Constitutional: Negative for fever, chills, and weight loss, Cardiovascular: Negative rt for chest pain, palpitations, and edema, Respiratory: Negative for shortness of breath, cough, wheezing, and pleuritic chest pain, Skin: Negative for injury, rash, and discoloration, Neuro: Negative for headache, weakness, numbness, tingling, and seizure, 10:33 Abdomen/GI: Positive for nausea, 10:33 : Positive for Pelvic pain, negative for dysuria, Exam: 10:33 Constitutional: This is a well developed, well nourished patient who is awake, alert, rt and in no acute distress. Head/Face: Normocephalic, atraumatic. Chest/axilla: Normal chest wall appearance and motion. Nontender with no deformity. No lesions are appreciated. Cardiovascular: Regular rate and rhythm with a normal S1 and S2. No gallops, murmurs, or rubs. Normal PMI, no JVD. No pulse deficits. Respiratory: Lungs have equal breath sounds bilaterally, clear to auscultation and percussion. No rales, rhonchi or wheezes noted. No increased work of breathing, no retractions or nasal flaring. Abdomen/GI: Soft, non-tender, with normal bowel sounds. No distension or tympany. No guarding or rebound. No evidence of tenderness throughout. Skin: Warm, dry with normal turgor. Normal color with no rashes, no lesions, and no evidence of cellulitis. MS/ Extremity: Pulses equal, no cyanosis. Neurovascular intact. Full, normal range of motion. Neuro: Awake and alert, GCS 15, oriented to person, place, time, and situation. Cranial nerves II-XII grossly intact. Motor strength 5/5 in all extremities. Sensory grossly intact. Cerebellar exam normal. Normal gait. Vital Signs: 10:06 BP 122 / 78; Pulse 71; Resp 17; Temp 98; Pulse Ox 98% on R/A; Weight 94.35 kg; Height 5 ll1 ft. 4 in. ; Pain 2/10; 13:13 BP 104 / 71; Pulse 62; Resp 16; Pulse Ox 100% on R/A; Pain 2/10; ss 10:06 Body Mass Index 35.70 (94.35 kg, 162.56 cm) ll1 10:06 Pain Scale: Adult ll1 13:13 Pain Scale: Adult ss MDM: 10:16 Medical Screening Exam initiated rt 12:26 Differential Diagnosis Ovarian cyst, ovarian torsion, UTI. Data reviewed: vital signs, rt nurses notes, lab test result(s), radiologic studies. I considered the following discharge prescriptions or medication management in the emergency department Medications were administered in the Emergency Department. See MAR. Test considered but Not performed: CT: Patient has no focal right lower quadrant pain, low suspicion for process such as appendicitis, diverticulitis, do not believe that CT scan is indicated at this time, patient with ovarian cyst on ultrasound, believe this is the etiology of her presentation, no signs of torsion. Return precautions were discussed with the patient.. Counseling: I had a detailed discussion with the patient and/or guardian regarding the historical points, exam findings, and any diagnostic results supporting the discharge/admit diagnosis, lab results, radiology results, the need for outpatient follow up, to return to the emergency department if symptoms worsen or persist or if there are any questions or concerns that arise at home. Response to treatment: the patient's symptoms have markedly improved after treatment. 01/29 10:25 Order name: CBC with Diff; Complete Time: 12:09 rt 01/29 10:25 Order name: CMP; Complete Time: 12:09 rt 01/29 10:25 Order name: UAM; Complete Time: 12:16 rt 01/29 10:25 Order name: PREGU; Complete Time: 12:17 rt 01/29 11:13 Order name: Transvaginal Study Probe; Complete Time: 12:09 EDMS Administered Medications: 13:13 Drug: Ketorolac IVP 30 mg IVP once Route: IVP; Site: right antecubital; ss 13:28 Follow up: Response: No adverse reaction; RASS: Alert and Calm (0) ss 13:13 Drug: morphine IVP or IV 2 mg IVP once over 4 mins Route: IVP; Infused Over: 4 mins; ss Site: right antecubital; 13:28 Follow up: Response: No adverse reaction; Pain is decreased; RASS: Alert and Calm (0) ss Disposition Summary: 01/30/24 12:24 Discharge Ordered Notes: Location: Home rt Problem: new rt Symptoms: have improved rt Condition: Stable rt Diagnosis - Bilateral ovarian cyst rt Followup: rt - With: Private Physician - When: 2 - 3 days - Reason: Discharge Instructions: - Discharge Summary Sheet rt - Ovarian Cyst rt Forms: - Medication Reconciliation Form rt - Antibiotic Education rt - Prescription Opioid Use rt - Patient Portal Instructions rt - Leadership Thank You Letter rt Prescriptions: - Tramadol 50 mg Oral tablet - take 1 tablet ORAL route every 8 hours as needed; 15 tablet; Refills: 0, rt Product Selection Permitted Signatures: Dispatcher [employer] EDMS Mikki Singletary RN RN ss Enoc Busby RN RN ll1 Tyrone Emmanuel MD MD rt Corrections: (The following items were deleted from the chart) 10:25 10:25 CBC+H.LAB.BRZ ordered. EDMS EDMS 10:25 10:25 COMPREHENSIVE METABOLIC PANEL+C.LAB.BRZ ordered. EDMS EDMS 10:25 10:25 Urinalysis W/Microscopic+U.LAB.BRZ ordered. EDMS EDMS 10:25 10:25 Test, Urine+UC.LAB.BRZ ordered. EDMS EDMS 11:38 10:25 Pelvis Complete+US.RAD.BRZ ordered. EDMS EDMS
--- NOTE | 2024-01-30 12:24 | ER ---
Nurse's Notes [facility] Name: Angelica Dillard Age: 38 yrs Sex: Female : 1985 Arrival Date: 01/30/2024 Time: 09:58 Bed 10 Private MD: Diagnosis: Bilateral ovarian cyst Presentation: 01/29 10:06 Chief complaint: EMS states: VSS. Unable to get IV. Fentanyl 50 mcg intranasal given x ll1 2 en route. Pain 05/25 now. Chief complaint: Patient states: Sudden onset of pelvic pain 30 min [employer]. States fentanyl helped the pain. Coronavirus screen: Client denies travel out of the [place] in the last 14 days. At this time, the client does not indicate any symptoms associated with coronavirus-19. Ebola Screen: Patient denies travel to an Ebola-affected area in the 21 days before illness onset. Initial Sepsis Screen: Does the patient meet any 2 criteria? No. Patient's initial sepsis screen is negative. Does the patient have a suspected source of infection? No. Patient's initial sepsis screen is negative. Risk Assessment: Do you want to hurt yourself or someone else? Patient reports no desire to harm self or others. Onset of symptoms was January 30, 2024. 10:06 Method Of Arrival: EMS: [facility] ll1 10:06 Acuity: MARIO 3 ll1 Historical: - Allergies: 10:05 No Known Allergies; ll1 - PMHx: 10:05 PCOS (hernia repair); ovarian cysts (hernia repair); ll1 - PSHx: 10:05 section; hernia repair; ll1 - Immunization history:: Adult Immunizations up to date. - Social history:: Smoking status: Patient denies any tobacco usage or history of. - Family history:: not pertinent. Screenin:26 [facility] ED Fall Risk Assessment (Adult) History of falling in the last 3 months, ss including since admission No falls in past 3 months (0 pts). Abuse screen: Denies threats or abuse. Denies injuries from another. Nutritional screening: No deficits noted. Tuberculosis screening: Never had TB. Assessment: 10:40 Reassessment: to US via wheelchair. ss 10:54 Reassessment: in [place] at this time. ss 13:26 General: Appears in no apparent distress. comfortable, Behavior is calm, cooperative. ss Neuro: Level of Consciousness is awake, alert, obeys commands. Respiratory: Airway is patent Respiratory effort is even, unlabored, Respiratory pattern is regular, symmetrical. Derm: Skin is intact, is healthy with good turgor, Skin is pink, warm \T\ dry. normal. Vital Signs: 10:06 BP 122 / 78; Pulse 71; Resp 17; Temp 98; Pulse Ox 98% on R/A; Weight 94.35 kg; Height 5 ll1 ft. 4 in. ; Pain 2/10; 13:13 BP 104 / 71; Pulse 62; Resp 16; Pulse Ox 100% on R/A; Pain 2/10; ss 10:06 Body Mass Index 35.70 (94.35 kg, 162.56 cm) ll1 10:06 Pain Scale: Adult ll1 13:13 Pain Scale: Adult ss ED Course: 10:05 Patient arrived in ED. ll1 10:07 Triage completed. ll1 10:07 Arm band placed on Patient placed in an exam room, on a stretcher. ll1 10:12 Tyrone Emmanuel MD is Attending Physician. rt 10:30 Enoc Busby, MARYANNE is Primary Nurse. ll1 10:39 Inserted saline lock: 22 gauge in right antecubital area, using aseptic technique. ss ,using aseptic technique. labeled date/time/initials Blood collected. Flushed with 10 mL NS. 10:40 CMP Sent. ss 10:40 CBC with Diff Sent. ss 11:26 Transvaginal Study Probe In Process Unspecified. EDMS 13:26 Patient has correct armband on for positive identification. ss 13:26 No provider procedures requiring assistance completed. Patient did not have IV access ss during this emergency room visit. Administered Medications: 13:13 Drug: Ketorolac IVP 30 mg IVP once Route: IVP; Site: right antecubital; ss 13:28 Follow up: Response: No adverse reaction; RASS: Alert and Calm (0) ss 13:13 Drug: morphine IVP or IV 2 mg IVP once over 4 mins Route: IVP; Infused Over: 4 mins; ss Site: right antecubital; 13:28 Follow up: Response: No adverse reaction; Pain is decreased; RASS: Alert and Calm (0) ss Medication: 13:26 VIS not applicable for this client. ss Outcome: 12:24 Discharge ordered by MD. rt 13:26 Discharged to home ambulatory, ss 13:26 Condition: good 13:26 Discharge instructions given to patient, Instructed on discharge instructions, follow up and referral plans. medication usage, Demonstrated understanding of instructions, follow-up care, medications, Prescriptions given X 1, 13:27 Patient left the ED. ss Signatures: Dispatcher [employer] Mikki Garcia RN RN ss Enoc Busby RN RN ll1 Tyrone Emmanuel MD MD rt Corrections: (The following items were deleted from the chart) 11:38 11:13 In radiology for Pelvis Complete+US.RAD.BRZ. EDMS EDMS
[2024-01-30] MEDS ORDERED: KETOROLAC 30 MG/ML INJ ONE (13:05)
[2024-01-30] MEDS ORDERED: MORPHINE 2 MG/ML SYR ONE (13:06)
[2024-01-30 13:50] VITALS: TEMP 98
[2024-01-30 13:51] VITALS: BP 104/71; O2SAT 100
== END 2024-01-30 13:27 | disposition home or self-care (01) ==
LOC: ER 09:58
DX: N83.202 Unspecified ovarian cyst, left side (principal); N83.201 Unspecified ovarian cyst, right side; R30.0 Dysuria
CPT/HCPCS: 85025; 81001; 36415; 81025; 80053; 76830; 96375; 96374; 99284; J2270

== ENCOUNTER 2025-01-11 22:23 | Emergency (ER) | payer BC ==
[2025-01-11] MEDS ORDERED: SMZ./TMP. 800/160 MG TABLET ONE (22:38)
--- NOTE | 2025-01-11 22:40 | EDPHYS ---
Physician Documentation [facility] Name: Angelica Dillard Age: 39 yrs Sex: Female : 1985 Arrival Date: 01/11/2025 Time: 22:23 Bed 20 Private MD: LULÚ Physician Jovan Zaidi HPI: 01/11 22:46 This 39 yrs old Female presents to ER via Ambulatory with complaints of Breast pain./ kb swelling. 22:46 Pt is a 39 year old female who presents for pain to left nipple. States the pain kb started 5 days ago and has gotten worse. States she took out her nipple piercing and there was discharge. Denies fever. . 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 - Infectious Disease History:: Denies. - Social history:: Smoking status: Patient reports the use of cigarette tobacco products, smokes one-half pack cigarettes per day. ROS: 22:44 Constitutional: As per HPI kb Exam: 22:44 Constitutional: This is a well developed, well nourished patient who is awake, alert, kb and in no acute distress. Head/Face: Normocephalic, atraumatic. ENT: Moist Mucous membranes Respiratory: Respirations even and unlabored. No increased work of breathing. Talking in full sentences MS/ Extremity: Pulses equal, no cyanosis. Neurovascular intact. Full, normal range of motion. Neuro: Awake and alert, GCS 15, oriented to person, place, time, and situation. 22:44 Skin: abscess, that is small, of the left nipple, with induration, Vital Signs: 22:38 BP 129 / 86; Pulse 83; Resp 16; Temp 98(O); Pulse Ox 100% on R/A; Weight 81.19 kg (R); jb4 Height 5 ft. 4 in. ; Pain 5/10; 22:38 Body Mass Index 30.72 (81.19 kg, 162.56 cm) jb4 22:38 Pain Scale: Adult jb4 MDM: 22:32 Medical Screening Exam initiated kb 22:46 Differential diagnosis: abscess, cellulitis, insect bite, wound infection. Data kb reviewed: vital signs, nurses notes. Counseling: I had a detailed discussion with the patient and/or guardian regarding the historical points, exam findings, and any diagnostic results supporting the discharge/admit diagnosis, the need for outpatient follow up, a family practitioner, to return to the emergency department if symptoms worsen or persist or if there are any questions or concerns that arise at home. Administered Medications: 22:40 Drug: Trimethoprim-Sulfamethoxazole PO (160 mg-800 mg (DS) 1 tablet PO once Route: PO; kb4 22:45 Follow up: Response: No adverse reaction kb4 Disposition Summary: 01/11/25 22:39 Discharge Ordered Notes: Location: Home kb Condition: Stable kb Diagnosis - Local infection of the skin and subcutaneous tissue, unspecified - left nipple kb Followup: kb - With: Emergency Department - When: As needed - Reason: Worsening of condition Followup: kb - With: Private Physician - When: 2 - 3 days - Reason: Recheck today's complaints, Continuance of care, Re-evaluation by your physician Discharge Instructions: - Discharge Summary Sheet kb - Skin Abscess, [id number] kb - Wound Infection, [id number] kb Forms: - Medication Reconciliation Form kb - Antibiotic Education kb - Prescription Opioid Use kb - Patient Portal Instructions kb - Leadership Thank You Letter kb Prescriptions: - Bactrim DS 800-160 mg Oral Tablet - take 1 tablet ORAL route every 12 hours for 10 days; 20 tablet; Refills: 0, kb Product Selection Permitted Signatures: Rosey Glez FNP-C FNP-Antonio Brady, RN RN jb4 Yesenia eWbb, MARYANNE RN kb4
--- NOTE | 2025-01-11 22:48 | ER ---
Nurse's Notes [facility] Name: Angelica Dillard Age: 39 yrs Sex: Female : 1985 Arrival Date: 01/11/2025 Time: 22:23 Bed 20 Private MD: Diagnosis: Local infection of the skin and subcutaneous tissue, unspecified-left nipple Presentation: 01/11 22:38 Chief complaint: Patient states: Ac my left nipple began to get tender and it has jb4 worsened since. Now it is swollen and hot to the touch. I took my piercing out and white foul smelling drainage came out. Coronavirus screen: At this time, the client does not indicate any symptoms associated with coronavirus-19. Ebola Screen: No symptoms or risks identified at this time. Initial Sepsis Screen: Does the patient meet any 2 criteria? No. Patient's initial sepsis screen is negative. Does the patient have a suspected source of infection? No. Patient's initial sepsis screen is negative. Risk Assessment: Do you want to hurt yourself or someone else? Patient reports no desire to harm self or others. Onset of symptoms was January 08, 2025. Transition of care: patient was not received from another setting of care. 22:38 Method Of Arrival: Ambulatory jb4 22:38 Acuity: MARIO 4 jb4 Triage Assessment: 22:47 General: Appears in no apparent distress. comfortable, Behavior is calm, cooperative. kb4 Pain: Complains of pain in left nipple. Neuro: Level of Consciousness is awake, alert, obeys commands, Oriented to person, place, time, situation. 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 - Infectious Disease History:: Denies. - Social history:: Smoking status: Patient reports the use of cigarette tobacco products, smokes one-half pack cigarettes per day. Screenin:46 [facility] ED Fall Risk Assessment (Adult) History of falling in the last 3 months, kb4 including since admission No falls in past 3 months (0 pts) Confusion or Disorientation No (0 pts) Intoxicated or Sedated No (0 pts) Impaired Gait No (0 pts) Mobility Assist Device Used No (0 pt) Altered Elimination No (0 pt) Score/Fall Risk Level 0 - 2 = Low Risk. Abuse screen: Denies threats or abuse. Denies injuries from another. Nutritional screening: No deficits noted. Tuberculosis screening: No symptoms or risk factors identified. Vital Signs: 22:38 BP 129 / 86; Pulse 83; Resp 16; Temp 98(O); Pulse Ox 100% on R/A; Weight 81.19 kg (R); jb4 Height 5 ft. 4 in. ; Pain 5/10; 22:38 Body Mass Index 30.72 (81.19 kg, 162.56 cm) jb4 22:38 Pain Scale: Adult jb4 ED Course: 22:30 Patient arrived in ED. gm2 22:32 Rosey Glez FNP-C is [facility]. kb 22:32 Jovan Zaidi MD is Attending Physician. kb 22:34 Yesenia Webb RN is Primary Nurse. kb4 22:42 Triage completed. jb4 22:42 Arm band placed on right wrist. jb4 22:46 Patient has correct armband on for positive identification. Provided Education on: ABX. kb4 22:46 No provider procedures requiring assistance completed. Patient did not have IV access kb4 during this emergency room visit. Administered Medications: 22:40 Drug: Trimethoprim-Sulfamethoxazole PO (160 mg-800 mg (DS) 1 tablet PO once Route: PO; kb4 22:45 Follow up: Response: No adverse reaction kb4 Medication: 22:47 VIS not applicable for this client. kb4 Outcome: 22:39 Discharge ordered by MD. kb 22:46 Discharged to home ambulatory, kb4 22:46 Condition: good 22:46 Discharge instructions given to patient, Instructed on discharge instructions, follow up and referral plans. medication usage, Demonstrated understanding of instructions, follow-up care, medications, Prescriptions given X 1, 22:48 Patient left the ED. kb4 Signatures: Rosey Glez FNP-C FNP-Ckb Bryson, James, RN RN jb4 Maura Jerry 2 Yesenia Webb RN RN kb4
[2025-01-11 22:55] VITALS: BP 129/86; TEMP 98; O2SAT 100
== END 2025-01-11 22:48 | disposition home or self-care (01) ==
LOC: ER 22:23
DX: N61.1 Abscess of the breast and nipple (principal)
CPT/HCPCS: 99283